=== PATIENT | male | born 1955 | race Caucasian/White ===

== ENCOUNTER 2019-09-30 15:35 | Emergency (ER) | payer OTHER ==
[2019-09-30] MEDS ORDERED: ATROPINE SULFATE 1MG SYR ABBOJECT ONE (15:40)
[2019-09-30] MEDS ORDERED: Zofran 4 MG/2 ML VIAL IV ONE (15:45)
[2019-09-30] MEDS ORDERED: Zofran 4 MG/2 ML VIAL ONE (15:45)
[2019-09-30] MEDS ORDERED: MORPHINE SULFATE 4 MG INJ ONE (15:45)
[2019-09-30] MEDS ORDERED: Sodium Chloride 0.9% 1000 ML 1,000 ML ONE (15:45)
[2019-09-30] MEDS ORDERED: Sodium Chloride 0.9% 1000 ML 1,000 ML IV SCH (15:45)
[2019-09-30] MEDS ORDERED: MORPHINE SULFATE 4 MG INJ IV ONE (15:45)
[2019-09-30] MEDS ORDERED: BABY ASPIRIN 81 MG CHEW PO ONE (15:45)
[2019-09-30] MEDS ORDERED: Nitrostat 0.4 MG (ED) SL ONE ×2 (15:45→15:51)
--- NOTE | 2019-09-30 15:45 | ERPHSYRPT ---
- History of Present Illness Time Seen by Provider: 09/30/19 15:44 Historian: patient, family Exam Limitations: no limitations Physician History: This is a 64-year-old gentleman who is not on any medication, and is allergic to Valium and presents with chest pain that is central in location it is sharp stabbing with an ache component and radiates to both shoulders. He has mild shortness of breath with it. Patient is a smoker of cigarettes. He has no known cardiac history. 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 Patient was at work doing his usual activity when he noticed the symptoms of pain as described above and associated dizziness. Patient was brought to the emergency room and immediately the EKG was determined to show ST elevation in leads II, III and aVF. Our STEMI alert was immediately started. Timing/Duration: today Activities at Onset: activity Quality: aching, sharpness, stabbing Location: central Chest Pain Radiation: arm (Bilateral including shoulders) Severity of Pain-Max: moderate Severity of Pain-Current: moderate Modifying Factors: Improves With: nothing Associated Symptoms: shortness of breath, dizziness Prior Chest Pain/Cardiac Workup: no prior chest pain, no prior cardiac workup Nitro Today/Relief: no nitro taken today Aspirin Treatment Today: no aspirin today Allergies/Adverse Reactions: No Known Drug Allergies Allergy (Unverified 09/30/19 15:59) Home Medications: No Reportable Medications [No Reported Medications] 09/30/19 [History] - Review of Systems Constitutional: No Symptoms Eyes: No Symptoms Ears, Nose, & Throat: No Symptoms Respiratory: Dyspnea Cardiac: Chest Pain Abdominal/Gastrointestinal: No Symptoms Genitourinary Symptoms: No Symptoms Musculoskeletal: No Symptoms Skin: No Symptoms Neurological: No Symptoms Psychological: No Symptoms Endocrine: No Symptoms Hematologic/Lymphatic: No Symptoms Immunological/Allergic: No Symptoms All Other Systems: Reviewed and Negative - Past Medical History Neurological History: No Pertinent History ENT History: No Pertinent History Cardiac History: No Pertinent History Respiratory History: No Pertinent History Endocrine Medical History: No Pertinent History Musculoskeletal History: No Pertinent History GI Medical History: No Pertinent History History: No Pertinent History Psycho-Social History: No Pertinent History Male Reproductive Disorders: No Pertinent History - Past Surgical History Neuro Surgical History: No Pertinent History Cardiac: No Pertinent History Respiratory: No Pertinent History Gastrointestinal: No Pertinent History Genitourinary: No Pertinent History Musculoskeletal: No Pertinent History Male Surgical History: No Pertinent History - Social History Smoking Status: Current every day smoker Drug Use: marijuana - Nursing Vital Signs Nursing Vital Signs: Initial Vital Signs Temperature 97.8 F 09/30/19 15:51 Pulse Rate 36 L 09/30/19 15:51 Respiratory Rate 20 09/30/19 15:51 Blood Pressure 117/82 09/30/19 15:51 O2 Sat by Pulse Oximetry 97 09/30/19 15:51 Pain Scale Pain Intensity 3 - Physical Exam General Appearance: mild distress, alert, anxiety, thin Eye Exam: PERRL/EOMI, eyes nml inspection Ears, Nose, Throat Exam: normal ENT inspection, moist mucous membranes Neck Exam: normal inspection, non-tender, supple, full range of motion Respiratory Exam: normal breath sounds, lungs clear, airway intact, No chest tenderness, No respiratory distress Cardiovascular Exam: bradycardia Gastrointestinal/Abdomen Exam: soft, normal bowel sounds, No tenderness Rectal Exam: not done Back Exam: normal inspection, normal range of motion, No CVA tenderness, No vertebral tenderness Extremity Exam: normal inspection, normal range of motion, pelvis stable Neurologic Exam: alert, oriented x 3, cooperative, rubber flap cutter II-XII nml as tested, normal mood/affect, nml cerebellar function, nml station & gait Skin Exam: normal color, warm, dry Lymphatic Exam: No adenopathy SpO2 Interpretation: normal O2 Delivery: Room Air - Course Nursing assessment & vital signs reviewed: Yes EKG Interpreted by Me: RATE (80), Sinus Rhythm, NORMAL AXIS, ST Elev (leads 2, 3 and avf), Other (ventricular bigeminy, prolonged pr interval) Ordered Tests: Active Orders 24 hr Category Date Time Status [place] STAT Care 09/30/19 15:48 Active EKG-ER Only STAT Care 09/30/19 15:45 Active IV Insertion STAT Care 09/30/19 15:45 Active Pulse Oximetry (ED) STAT Care 09/30/19 15:45 Active CHEST 1 VIEW (PORTABLE) Stat Exams 09/30/19 15:48 Taken CBC W DIFF Stat Lab 09/30/19 15:45 Completed CMP Stat Lab 09/30/19 15:45 Received PROTIME WITH INR Stat Lab 09/30/19 15:45 Completed TROPONIN Q3H Lab 09/30/19 15:45 Received TROPONIN Q3H Lab 09/30/19 19:00 Ordered TROPONIN Q3H Lab 09/30/19 22:00 Ordered TROPONIN Q3H Lab 10/01/19 01:00 Ordered TROPONIN Q3H Lab 10/01/19 04:00 Ordered Medication Summary Generic Name Dose Route Start Last Admin Trade Name Ria PRN Reason Stop Dose Admin Sodium Chloride 1,000 mls @ 100 mls/hr 09/30/19 15:45 Sodium Chloride 0.9% 1000 Ml IV 10/30/19 15:44 .Q10H SAE Discontinued Medications Generic Name Dose Route Start Last Admin Trade Name Ria PRN Reason Stop Dose Admin Aspirin 324 mg 09/30/19 15:45 Baby Aspirin 81 Mg Chew PO 09/30/19 15:46 STAT ONE Atropine Sulfate Confirm 09/30/19 15:40 Atropine Sulfate 1mg Syr Abboject Administered 09/30/19 15:41 Dose 1 mg .ROUTE .STK-MED ONE Heparin Sodium (Beef Lung) 5,000 unit 09/30/19 15:49 Heparin 5000 Units/0.5 Ml (High Risk Med) IV 09/30/19 15:50 STAT ONE Heparin Sodium (Beef Lung) Confirm 09/30/19 15:48 Heparin 5000 Units/0.5 Ml (High Risk Med) Administered 09/30/19 15:49 Dose 5,000 unit .ROUTE .STK-MED ONE Sodium Chloride Confirm 09/30/19 15:45 Sodium Chloride 0.9% 1000 Ml Administered 09/30/19 15:46 Dose 1,000 mls @ ud .ROUTE .STK-MED ONE Morphine Sulfate Confirm 09/30/19 15:45 Morphine Sulfate 4 Mg Inj Administered 09/30/19 15:46 Dose 4 mg .ROUTE .STK-MED ONE Morphine Sulfate 4 mg 09/30/19 15:45 Morphine Sulfate 4 Mg Inj IV 09/30/19 15:46 STAT ONE Nitroglycerin 0.4 mg 09/30/19 15:45 Nitrostat 0.4 Mg (Ed) SL 09/30/19 15:46 STAT ONE Nitroglycerin 0.4 mg 09/30/19 15:51 Nitrostat 0.4 Mg (Ed) SL 09/30/19 15:52 STAT ONE Ondansetron HCl Confirm 09/30/19 15:45 Zofran 4 Mg/2 Ml Vial Administered 09/30/19 15:46 Dose 4 mg .ROUTE .STK-MED ONE Ondansetron HCl 4 mg 09/30/19 15:45 Zofran 4 Mg/2 Ml Vial IV 09/30/19 15:46 STAT ONE Lab/Rad Data: Laboratory Result Diagrams 09/30/19 15:45 Laboratory Results 09/30/19 09/30/19 Range/Units 15:45 15:45 WBC 14.5 H (4.0-10.5) K/mm3 RBC 4.92 (4.1-5.6) M/mm3 Hgb 15.4 (12.5-18.0) gm/dl Hct 47.1 (42-50) % MCV 95.7 (78-100) fl MCH 31.3 (26-32) pg MCHC 32.7 (32-36) g/dl RDW 13.5 (11.5-14.0) % Plt Count 268 (150-450) K/mm3 MPV 10.4 (7.5-11.0) fl Gran % 41.7 (36.0-66.0) % Eos # (Auto) 0.18 (0-0.5) Absolute Lymphs (auto) 7.18 H (1.0-4.6) Absolute Monos (auto) 1.09 (0.0-1.3) Lymphocytes % 49.4 H (24.0-44.0) % Monocytes % 7.5 (0.0-12.0) % Eosinophils % 1.2 (0.00-5.0) % Basophils % 0.2 (0.0-0.4) % Absolute Granulocytes 6.06 (1.4-6.9) Basophils # 0.03 (0-0.4) PT 12.3 (8.83-12.87) SECONDS INR 1.09 (0.8-3.0) - Progress Progress: improved Air Movement: good Progress Note: 09/30/19 16:[address] Leon from [facility] emergency department. I reviewed the patient history, condition, EKG results with him. We faxed over the EKG to him in the emergency department as well as to the [facility]. He accepts the patient in transfer. Blood Culture(s) Obtained: No Antibiotics given: No Counseled pt/family regarding: diagnosis - Departure Departure Disposition: Transfer Clinical Impression: ST elevation myocardial infarction (STEMI) of inferior wall, initial episode of care Condition: Fair Critical Care Time: Yes Critical Care Time(excluding separately billable procedures): Critical 30-74 mins Referrals: TEQUILA SYLVESTER MD [Primary Care Provider] -
[2019-09-30] MEDS ORDERED: Heparin 5000 UNITS/0.5 ML (HIGH RISK MED) ONE (15:48)
[2019-09-30] MEDS ORDERED: Heparin 5000 UNITS/0.5 ML (HIGH RISK MED) IV ONE (15:49)
[2019-09-30 15:52] LABS: Absolute Neutrophil Ct (ANC) 6.06 (1.4-6.9); BASOPHIL % 0.2 % (0.0-0.4); Basophil (Absolute #) 0.03 (0-0.4); Eosinophil % 1.2 % (0.00-5.0); Eosinophil (Absolute #) 0.18 (0-0.5); Hematocrit 47.1 % (42-50); Hemoglobin 15.4 gm/dl (12.5-18.0); Lymphocyte (Absolute #) 7.18 (1.0-4.6); Lymphocytes % 49.4 % (24.0-44.0); Mean Cell Volume 95.7 fl (78-100); Mean Corpuscular Hemoglobin 31.3 pg (26-32); Mean Corpuscular Hgb Concent. 32.7 g/dl (32-36); Mean Platelet Volume 10.4 fl (7.5-11.0); Monocyte (Absolute #) 1.09 (0.0-1.3); Monocytes % 7.5 % (0.0-12.0); Neutrophil % 41.7 % (36.0-66.0); Platelet Count 268 K/mm3 (150-450); Red Blood Count 4.92 M/mm3 (4.1-5.6); Red Cell Distribution Width 13.5 % (11.5-14.0); White Blood Count 14.5 K/mm3 (4.0-10.5)
[2019-09-30 15:54] LABS: INR 1.09 (0.8-3.0); PROTIME 12.3 SECONDS (8.83-12.87)
[2019-09-30 15:59] VITALS: BP 117/82; PULSE 42; O2SAT 97
[2019-09-30 15:59] LABS: ALBUMIN 4.2 g/dL (3.5-5.0); ALKALINE PHOSPHATASE 74 U/L (38-126); ANION GAP 12.8 MEQ/L (5-15); BLOOD UREA NITROGEN 14 mg/dL (9-20); CHLORIDE 102 mmol/L (98-107); Calcium 8.8 mg/dL (8.4-10.2); Carbon Dioxide 27 mmol/L (22-30); Creatinine 1 1.18 mg/dL (0.66-1.25); Glucose 112 mg/dL (74-106); Potassium 3.7 mmol/L (3.5-5.1); SGOT/AST 28 U/L (17-59); SGPT/ALT 16 U/L (0-50); SODIUM 138 mmol/L (137-145)
[2019-09-30 16:10] LABS: Slide Review 1 YES
--- NOTE | 2019-09-30 16:10 | XRAY ---
Indication: Bradycardia. Near syncope. Comparison: None Portable chest demonstrates normal heart and lungs. Bony thorax intact.
== END 2019-09-30 16:03 | disposition short-term general hospital (02) ==
LOC: ED 15:35
DX: I21.19 ST elevation (STEMI) myocardial infarction involving other coronary artery of inferior wall (principal); R07.89 Other chest pain; R00.1 Bradycardia, unspecified
CPT/HCPCS: 36000; 36415; 71045; 80053; 84484; 85025; 85610; 93005; 93041; 94760; 96374; 96375; 99285; 99291; J0461; J1644; J2270; J2405; A9270-GY

== ENCOUNTER 2023-08-24 23:51 | Emergency (ER) | payer OTHER ==
[2023-08-25 00:24] VITALS: RESP 16; TEMP 98.2
[2023-08-25] MEDS ORDERED: AFRIN NASAL SPRAY NS ONE (00:35)
--- NOTE | 2023-08-25 00:37 | ERPHSYRPT ---
- History of Present Illness Source: patient Patient Subjective Stated Complaint: pt states he has had been having slow ble eding from both nostrils since he had septoplasty today. Triage Nursing Assessment: pt alert and oriented, answers questions approp. pt ambulates into house with steady gait noted. respirations nonlabored. skin warm and dry. drainage from nose, dark red with occasional small clots from both nares. Physician History: The patient had rhinoplasty surgery at the [facility] in [place] yesterday at around 1 PM. Hours later he was discharged from the hospital. He is presenting to the emergency room today because of bleeding from both nostrils. The patient was told that he might be having some of bleeding and that if it does not stop he should use an Afrin nasal spray and apply pressure. The patient has just been wiping his nose with some Kleenex tissue. He did tell me that his bleeding started right away after surgery, he was told that it. No trauma to his nose. Allergies/Adverse Reactions: No Known Drug Allergies Allergy (Verified 08/25/23 00:24) Home Medications: Aspirin EC 81 mg [Ecotrin 81 mg] 81 mg PO DAILY 08/25/23 [History] Atorvastatin Calcium [Lipitor 40Mg] 40 mg PO HS 08/25/23 [History] Cholecalciferol (Vitamin D3) [Vitamin D3] 1,000 unit PO DAILY 08/25/23 [History] Hydrocodone/Acetaminophen [Hydrocodone-Acetamin 5-325 mg] 1 tab PO Q6HPRN PRN MDD 4 08/25/23 [History] Midodrine HCl [Proamatine] 10 mg PO TID 08/25/23 [History] Hx Tetanus, Diphtheria Vaccination/Date Given: Yes Hx Influenza Vaccination/Date Given: Yes Hx Pneumococcal Vaccination/Date Given: Yes Immunizations Up to Date: Yes Travel Risk - International Travel Have you traveled outside of the country in past 3 weeks: No - Coronavirus Screening Are you exhibiting any of the following symptoms?: No Close contact with a COVID-19 positive Pt in past 14-21 Days: No - Vaccine Status Have you recieved a Covid-19 vaccination: Yes Phthalic Acid Purifier: Moderna - Vaccination Dates Date of 2cond Vaccination (if applicable): 2020 - Review of Systems Constitutional: No Fever, No Chills Eyes: No Symptoms Ears, Nose, & Throat: No Symptoms, Other (Nosebleed from both nostrils. The patient is status post rhinoplasty surgery yesterday afternoon time at the [facility] in [place].) Respiratory: No Cough, No Dyspnea Cardiac: No Chest Pain, No Edema, No Syncope Abdominal/Gastrointestinal: No Abdominal Pain, No Nausea, No Vomiting, No Diarrhea Genitourinary Symptoms: No Dysuria Musculoskeletal: No Back Pain, No Neck Pain Skin: No Rash Neurological: No Dizziness, No Focal Weakness, No Sensory Changes Psychological: No Symptoms Endocrine: No Symptoms All Other Systems: Reviewed and Negative - Past Medical History Pertinent Past Medical History: Yes Neurological History: No Pertinent History ENT History: No Pertinent History Cardiac History: Coronary Artery Disease, Myocardial Infarction (MT) Respiratory History: No Pertinent History Endocrine Medical History: No Pertinent History Musculoskeletal History: No Pertinent History GI Medical History: No Pertinent History History: No Pertinent History Psycho-Social History: No Pertinent History Male Reproductive Disorders: No Pertinent History - Past Surgical History Past Surgical History: Yes Neuro Surgical History: No Pertinent History Cardiac: No Pertinent History Respiratory: No Pertinent History Gastrointestinal: No Pertinent History Genitourinary: No Pertinent History Musculoskeletal: No Pertinent History Male Surgical History: No Pertinent History Other Surgical History: neck, septoplasty on 08/24/23 - Social History Smoking Status: Current every day smoker How long have you smoked: years Exposure to second hand smoke: No Drug Use: none Patient Lives Alone: Yes - Nursing Vital Signs Nursing Vital Signs: Initial Vital Signs Temperature 98.2 F 08/25/23 00:03 Pulse Rate 99 H 08/25/23 00:03 Respiratory Rate 16 08/25/23 00:03 Blood Pressure 148/92 08/25/23 00:03 O2 Sat by Pulse Oximetry 96 08/25/23 00:03 Pain Scale Pain Intensity 4 - Physical Exam General Appearance: no apparent distress, alert Eye Exam: PERRL/EOMI, eyes nml inspection Ears, Nose, Throat Exam: normal ENT inspection, TMs normal, pharynx normal, moist mucous membranes, other (Oozing of blood from both nostrils. The patient has a splint to his nose. Packing in both nostrils) Neck Exam: normal inspection, non-tender, supple, full range of motion Respiratory Exam: normal breath sounds, lungs clear, No respiratory distress Cardiovascular Exam: regular rate/rhythm, normal heart sounds, normal peripheral pulses Gastrointestinal/Abdomen Exam: soft, normal bowel sounds, No tenderness, No mass Back Exam: normal inspection, normal range of motion, No CVA tenderness, No vertebral tenderness Extremity Exam: normal inspection, normal range of motion, pelvis stable Neurologic Exam: alert, oriented x 3, cooperative, normal mood/affect, nml cerebellar function, nml station & gait, sensation nml, No motor deficits Skin Exam: normal color, warm, dry, No rash Lymphatic Exam: No adenopathy SpO2: 96 Ordered Tests: Medication Summary Discontinued Medications Generic Name Dose Route Start Last Admin Trade Name Bartq PRN Reason Stop Dose Admin Oxymetazoline HCl 15 ml 08/25/23 00:35 Oxymetazoline Nasal [place] 15ml Bottle NS 08/25/23 00:36 STAT ONE Phenylephrine HCl Confirm 08/25/23 00:49 Neosynephrine 0.5% Nasal [place]/Drops Administered 08/25/23 00:50 Dose 15 ml .ROUTE .STK-MED ONE Phenylephrine HCl 15 ml 08/25/23 00:51 08/25/23 01:04 Neosynephrine 0.5% Nasal [place]/Drops NS 08/25/23 00:52 15 ml STAT ONE Administration - Progress Progress Note: 08/25/23 00:36 The patient had rhinoplasty surgery at the [facility] in [place] yesterday at around 1 PM. Hours later he was discharged from the hospital. He is presenting to the emergency room today because of bleeding from both nostrils. The patient was told that he might be having some of bleeding and that if it does not stop he should use an Afrin nasal spray and apply pressure. The patient has just been wiping his nose with some Kleenex tissue. He did tell me that his bleeding started right away after surgery, he was told that it. No trauma to his nose. Emergency room course and medical decision making Afrin nasal spray to both nostrils. The patient has a hard splint to the nose. Unable to apply any pressure. Will reevaluate the patient after the Afrin nasal spray. 08/25/23 The patient is feeling better, he is just having slight pinkish discharge, no active nose bleeding. He will be discharged home. He can use the Afrin nasal spray 2 puffs each nostril 3-4 times a day as needed. Call his ENT tomorrow. Follow-up as needed for any worsening symptoms. - Departure Departure Disposition: Home Clinical Impression: Epistaxis Condition: Stable Critical Care Time: No Referrals: [facility] [Primary Care Provider] - Follow up/PCP as directed Instructions: Nosebleeds (DC) Additional Instructions: Use the Afrin nasal spray 2 puffs in each nostril 3 times a day as needed for nosebleed. Call your ENT tomorrow and update him on the condition. Follow-up as needed for any worsening symptoms.
[2023-08-25] MEDS ORDERED: NEOSYNEPHRINE 0.5% NASAL SPRAY/DROPS ONE (00:49)
[2023-08-25] MEDS ORDERED: NEOSYNEPHRINE 0.5% NASAL SPRAY/DROPS NS ONE (00:51)
[2023-08-25 01:56] VITALS: BP 113/65; PULSE 84; O2SAT 97
== END 2023-08-25 01:53 | disposition home or self-care (01) ==
LOC: ED 23:51
DX: R04.0 Epistaxis (principal); Z79.891 Long term (current) use of opiate analgesic; Z79.899 Other long term (current) drug therapy; Z72.0 Tobacco use
CPT/HCPCS: 99281; A9270-GY